=== PATIENT | male | born 1990 | race Two or more races ===

== ENCOUNTER 2021-11-22 20:46 | Inpatient (IN) | payer MEDICAID, OTHER ==
[~2021-11-22] VITALS: Ht 182.9 cm; Wt 85.5 kg
[2021-11-22] MEDS ORDERED: SODIUM CHLORIDE 0.9% 1,000 ML IV ONE (21:00)
[2021-11-22 22:07] LABS: Basophils # (auto) 0 10 ^3/uL (0-0.2); Basophils % (auto) 0.1 % (0.0-2.0); Eosinophils # (auto) 0 10 ^3/uL (0-0.8); Eosinophils % (auto) 0.2 % (0.0-7.0); Hematocrit 42.8 % (41.0-53.0); Hemoglobin 14.8 g/dL (13.5-17.5); Lymphocytes # (auto) 1.5 10 ^3/uL (0.4-5.4); Lymphocytes % (auto) 10.4 % (10.0-50.0); Mean Corpuscular Hemoglobin 32.1 pg (28.0-32.0); Mean Corpuscular Hgb Conc. 34.6 g/dL (32.0-36.0); Mean Corpuscular Volume 92.8 fL (80.0-100.0); Monocytes # (auto) 1.2 10 ^3/uL (0-1.3); Monocytes % (auto) 8.7 % (0.0-12.0); Neutrophils # (auto) 11.5 10 ^3/uL (1.6-8.6); Neutrophils % (auto) 80.6 % (37.0-80.0); Red Blood Cells 4.61 10^6/uL (4.5-5.90); Red Cell Distribution Width 12.3 % (11.8-14.3); White Blood Cell 14.3 10^3/uL (4.4-10.8)
[2021-11-22 22:25] LABS: Albumin 4.2 g/dL (3.4-5.0); Anion Gap 12 (5-15); Blood Alcohol < 3.0 mg/dL (0-5); Blood Urea Nitrogen 21 mg/dL (7-18); Calcium 9.2 mg/dL (8.5-10.1); Carbon Dioxide 23 mmol/L (21-32); Chloride 103 mmol/L (98-107); Glucose 101 mg/dL (74-106); Potassium 3.5 mmol/L (3.5-5.1); Sodium 138 mmol/L (136-145)
[2021-11-22 22:28] LABS: Salicylate < 1.7 mg/dL (2.8-20.0)
[2021-11-22 22:31] LABS: Acetaminophen < 2.0 ug/mL (10-30)
[2021-11-22 22:40] LABS: Alanine Aminotransferase 46 U/L (16-61); Alkaline Phosphatase 63 U/L (45-117); Aspartate Aminotransferase 95 U/L (15-37); Bilirubin, Total 1.8 mg/dL (0.2-1.0); Creatine Kinase IFCC 1009 U/L (39-308); GFR African American 93 mL/min; GFR Non-African American 77 mL/min; Total Protein 7.3 g/dL (6.4-8.2)
[2021-11-22 22:41] LABS: BUN/Creatinine Ratio 18.1
[2021-11-23] MEDS ORDERED: cefTRIAXone 1GM/50ML D5W 50 ML IV ONE (02:30)
[2021-11-23] MEDS ORDERED: SODIUM CHLORIDE 0.9% 1,000 ML IV ONE (11:00)
[2021-11-23] MEDS ORDERED: ACETAMINOPHEN 325 MG TAB PO PRN (11:00)
[2021-11-23] MEDS ORDERED: ONDANSETRON HCL 4 MG/2 ML VIAL IV PRN (11:00)
[2021-11-23] MEDS: ceFAZolin 1GM/50ML 50 ML IV SCH ×2 (12:33→19:00)
[2021-11-23 12:49] LABS: Bilirubin, Direct 0.4 mg/dL (0-0.2)
[2021-11-23 12:57] LABS: Bilirubin, Total 1.8 mg/dL (0.2-1.0); CRP High Sensitivity 2.89 mg/dL (< 0.3)
[2021-11-23] MEDS: SODIUM CHLOR 0.9% PF (SALINE LOCK) 10ML VIAL/SYR IV SCH ×2 (13:37→21:46)
[2021-11-23 16:29] LABS: Urine WBC None Seen /hpf (0 - 3)
[2021-11-23 16:34] LABS: Urine Bacteria NONE SEEN /hpf (None Seen); Urine Blood Negative /uL (Negative); Urine Mucus MANY (None Seen); Urine Specific Gravity 1.038 (1.001-1.035)
[2021-11-23 16:48] LABS: Amphetamine Screen, Urine NEGATIVE (NEGATIVE); Barbiturate Scree,Urine NEGATIVE (NEGATIVE); Benzodiazephine Screen, Urine NEGATIVE (NEGATIVE); Cannabinoid Screen, Urine POSITIVE (NEGATIVE); Cocaine Screen, Urine NEGATIVE (NEGATIVE); Opiate Scree,Urine NEGATIVE (NEGATIVE); Phencyclidine Screen, Urine NEGATIVE (NEGATIVE)
[2021-11-23 20:00] VITALS: BP 133/79
[2021-11-23 22:00] VITALS: BP 133/79
[2021-11-23] MEDS ORDERED: TEMAZEPAM 15 MG CAP PO ONE (23:15)
[2021-11-24] MEDS: ceFAZolin 1GM/50ML 50 ML IV SCH ×3 (03:00→19:05)
[2021-11-24 05:00] VITALS: BP 143/77
[2021-11-24] MEDS: SODIUM CHLOR 0.9% PF (SALINE LOCK) 10ML VIAL/SYR IV SCH ×3 (05:33→23:07)
[2021-11-24] MEDS ORDERED: ALPRAZolam 0.25 MG TAB PO ONE (07:00)
[2021-11-24] MEDS: HYDROcodone-ACET 5/325MG TAB PO PRN ×2 (10:30→16:52)
[2021-11-24] MEDS: SODIUM CHLORIDE 0.9% 1,000 ML IV SCH ×2 (10:30→19:05)
[2021-11-24 13:30] VITALS: BP 140/87
[2021-11-24] MEDS ORDERED: LORazepam 0.5 MG TAB PO PRN (17:00)
[2021-11-24] MEDS: HYDROmorphone HCL 2 MG/ML VL/or syr IV PRN (18:50)
[2021-11-24 22:00] VITALS: BP 130/79
[2021-11-25] MEDS: ceFAZolin 1GM/50ML 50 ML IV SCH ×3 (04:55→22:06)
[2021-11-25] MEDS: HYDROcodone-ACET 5/325MG TAB PO PRN (05:49)
[2021-11-25] MEDS: SODIUM CHLOR 0.9% PF (SALINE LOCK) 10ML VIAL/SYR IV SCH ×4 (06:37→21:07)
[2021-11-25] MEDS: SODIUM CHLORIDE 0.9% 1,000 ML IV SCH ×2 (06:38→22:45)
[2021-11-25 09:00] VITALS: BP 144/88
[2021-11-25] MEDS: SILVER SULFADIAZINE 1 % TOPICAL CREAM 50GM TOP SCH (11:22)
[2021-11-25 13:00] VITALS: BP 140/91
[2021-11-25 15:16] LABS: Basophils # (auto) 0 10 ^3/uL (0-0.2); Basophils % (auto) 0.4 % (0.0-2.0); Eosinophils # (auto) 0.2 10 ^3/uL (0-0.8); Eosinophils % (auto) 2.3 % (0.0-7.0); Hematocrit 38.8 % (41.0-53.0); Hemoglobin 13.5 g/dL (13.5-17.5); Lymphocytes # (auto) 1.1 10 ^3/uL (0.4-5.4); Lymphocytes % (auto) 15.8 % (10.0-50.0); Mean Corpuscular Hemoglobin 32.2 pg (28.0-32.0); Mean Corpuscular Hgb Conc. 34.9 g/dL (32.0-36.0); Monocytes # (auto) 0.6 10 ^3/uL (0-1.3); Monocytes % (auto) 8.5 % (0.0-12.0); Neutrophils # (auto) 5.3 10 ^3/uL (1.6-8.6); Red Blood Cells 4.21 10^6/uL (4.5-5.90); Red Cell Distribution Width 11.8 % (11.8-14.3); White Blood Cell 7.2 10^3/uL (4.4-10.8)
[2021-11-25 15:29] LABS: BUN/Creatinine Ratio 13.6; Calcium 8.9 mg/dL (8.5-10.1); Potassium 3.8 mmol/L (3.5-5.1)
[2021-11-25] MEDS ORDERED: THIAMINE HCL 100 MG TAB PO ONE ×2 (19:00→19:30)
[2021-11-25] MEDS ORDERED: FOLIC ACID 1 MG TAB PO ONE ×2 (19:00→19:30)
[2021-11-25] MEDS ORDERED: SODIUM CHLORIDE 0.9% 1,000 ML IV ONE (19:00)
[2021-11-25] MEDS ORDERED: MULTIPLE VITAMIN TAB PO ONE ×2 (19:00→19:30)
[2021-11-25] MEDS: chlordiazePOXIDE HCL 25 MG CAP PO SCH (19:30)
[2021-11-25 21:11] LABS: Basophils # (auto) 0 10 ^3/uL (0-0.2); Basophils % (auto) 0.3 % (0.0-2.0); Eosinophils # (auto) 0.1 10 ^3/uL (0-0.8); Eosinophils % (auto) 1.7 % (0.0-7.0); Hematocrit 35.8 % (41.0-53.0); Hemoglobin 12.6 g/dL (13.5-17.5); Lymphocytes # (auto) 1.1 10 ^3/uL (0.4-5.4); Lymphocytes % (auto) 16.7 % (10.0-50.0); Mean Corpuscular Hemoglobin 32.4 pg (28.0-32.0); Mean Corpuscular Hgb Conc. 35.1 g/dL (32.0-36.0); Mean Corpuscular Volume 92.2 fL (80.0-100.0); Monocytes # (auto) 0.5 10 ^3/uL (0-1.3); Monocytes % (auto) 7.9 % (0.0-12.0); Neutrophils # (auto) 4.9 10 ^3/uL (1.6-8.6); Neutrophils % (auto) 73.4 % (37.0-80.0); Red Blood Cells 3.88 10^6/uL (4.5-5.90); Red Cell Distribution Width 12.1 % (11.8-14.3); White Blood Cell 6.7 10^3/uL (4.4-10.8)
[2021-11-25 21:33] LABS: Albumin 3.1 g/dL (3.4-5.0); Calcium 8.6 mg/dL (8.5-10.1); Magnesium 2.1 mg/dL (1.6-2.6); Potassium 3.3 mmol/L (3.5-5.1)
[2021-11-25 21:36] LABS: BUN/Creatinine Ratio 9.5; Bilirubin, Total 0.5 mg/dL (0.2-1.0)
[2021-11-25 22:14] VITALS: BP 130/87
[2021-11-26] MEDS: chlordiazePOXIDE HCL 25 MG CAP PO SCH ×3 (03:30→22:18)
[2021-11-26 04:54] VITALS: BP 157/95
[2021-11-26] MEDS: ceFAZolin 1GM/50ML 50 ML IV SCH ×3 (05:59→22:18)
[2021-11-26 09:00] VITALS: BP 133/78
[2021-11-26] MEDS ORDERED: MIDAZOLAM HCL 2MG/2ML 2ml VIAL (1mg/ml) IV PRN ×3 (09:00→16:45)
[2021-11-26] MEDS: SILVER SULFADIAZINE 1 % TOPICAL CREAM 50GM TOP SCH (10:00)
[2021-11-26] MEDS ORDERED: POTASSIUM CHLORIDE 40 MEQ, LIDOCAINE 1% (LOCAL ANESTH.) 4 ML in SODIUM CHL 0.9% 250 ML IV ONE (10:15)
[2021-11-26] MEDS: SODIUM CHLORIDE 0.9% 1,000 ML IV SCH ×2 (10:45→17:43)
[2021-11-26] MEDS: SODIUM CHLOR 0.9% PF (SALINE LOCK) 10ML VIAL/SYR IV SCH ×2 (10:47→17:43)
[2021-11-26 22:00] VITALS: BP 146/89
[2021-11-27] MEDS: SODIUM CHLORIDE 0.9% 1,000 ML IV SCH ×3 (03:50→23:15)
[2021-11-27 05:00] VITALS: BP 120/80
[2021-11-27] MEDS: ceFAZolin 1GM/50ML 50 ML IV SCH ×3 (06:06→22:33)
[2021-11-27] MEDS: SODIUM CHLOR 0.9% PF (SALINE LOCK) 10ML VIAL/SYR IV SCH ×3 (06:06→22:43)
[2021-11-27 09:00] VITALS: BP 143/80
[2021-11-27] MEDS: chlordiazePOXIDE HCL 25 MG CAP PO SCH ×2 (09:36→22:00)
[2021-11-27] MEDS: SILVER SULFADIAZINE 1 % TOPICAL CREAM 50GM TOP SCH (09:37)
[2021-11-27 14:36] LABS: Basophils # (auto) 0 10 ^3/uL (0-0.2); Basophils % (auto) 0.3 % (0.0-2.0); Eosinophils # (auto) 0.1 10 ^3/uL (0-0.8); Eosinophils % (auto) 1.6 % (0.0-7.0); Hematocrit 38.7 % (41.0-53.0); Hemoglobin 13.2 g/dL (13.5-17.5); Lymphocytes # (auto) 1.2 10 ^3/uL (0.4-5.4); Mean Corpuscular Hemoglobin 31.7 pg (28.0-32.0); Mean Corpuscular Hgb Conc. 34.2 g/dL (32.0-36.0); Mean Corpuscular Volume 92.9 fL (80.0-100.0); Monocytes # (auto) 0.6 10 ^3/uL (0-1.3); Monocytes % (auto) 9.8 % (0.0-12.0); Neutrophils # (auto) 3.8 10 ^3/uL (1.6-8.6); Neutrophils % (auto) 66.3 % (37.0-80.0); Nucleated Red Blood Cells % 0.1 %; Red Blood Cells 4.17 10^6/uL (4.5-5.90); Red Cell Distribution Width 12.2 % (11.8-14.3); White Blood Cell 5.7 10^3/uL (4.4-10.8)
[2021-11-27 15:42] LABS: Calcium 8.9 mg/dL (8.5-10.1); Potassium 3.9 mmol/L (3.5-5.1)
[2021-11-27 15:44] LABS: BUN/Creatinine Ratio 12.1
[2021-11-27 17:00] VITALS: BP 146/90
[2021-11-27 22:00] VITALS: BP 132/82
[2021-11-28] MEDS: SODIUM CHLOR 0.9% PF (SALINE LOCK) 10ML VIAL/SYR IV SCH ×3 (06:01→22:03)
[2021-11-28] MEDS: ceFAZolin 1GM/50ML 50 ML IV SCH ×3 (06:01→22:03)
[2021-11-28] MEDS ORDERED: chlordiazePOXIDE HCL 25 MG CAP PO SCH (07:00)
[2021-11-28] MEDS: SILVER SULFADIAZINE 1 % TOPICAL CREAM 50GM TOP SCH (11:36)
[2021-11-28 16:36] VITALS: BP 150/85
[2021-11-28 22:00] VITALS: BP 142/83
[2021-11-29 05:00] VITALS: BP 140/76
[2021-11-29] MEDS: ceFAZolin 1GM/50ML 50 ML IV SCH ×3 (05:55→21:44)
[2021-11-29] MEDS: SODIUM CHLOR 0.9% PF (SALINE LOCK) 10ML VIAL/SYR IV SCH ×3 (05:55→21:43)
[2021-11-29 06:34] LABS: Basophils # (auto) 0 10 ^3/uL (0-0.2); Basophils % (auto) 0.4 % (0.0-2.0); Eosinophils # (auto) 0.1 10 ^3/uL (0-0.8); Eosinophils % (auto) 1.9 % (0.0-7.0); Hematocrit 39.7 % (41.0-53.0); Hemoglobin 13.9 g/dL (13.5-17.5); Lymphocytes # (auto) 1.5 10 ^3/uL (0.4-5.4); Lymphocytes % (auto) 26.6 % (10.0-50.0); Mean Corpuscular Hemoglobin 32.3 pg (28.0-32.0); Mean Corpuscular Volume 92.3 fL (80.0-100.0); Monocytes # (auto) 0.5 10 ^3/uL (0-1.3); Monocytes % (auto) 8.5 % (0.0-12.0); Neutrophils # (auto) 3.5 10 ^3/uL (1.6-8.6); Neutrophils % (auto) 62.6 % (37.0-80.0); Nucleated Red Blood Cells % 0.1 %; Red Cell Distribution Width 12.4 % (11.8-14.3); White Blood Cell 5.6 10^3/uL (4.4-10.8)
[2021-11-29 06:49] LABS: BUN/Creatinine Ratio 13.4; Potassium 4.2 mmol/L (3.5-5.1)
[2021-11-29 07:30] VITALS: BP 142/80
[2021-11-29 09:00] VITALS: BP 142/80
[2021-11-29] MEDS: FOLIC ACID 1 MG TAB PO SCH (09:00)
[2021-11-29] MEDS: THIAMINE HCL 100 MG TAB PO SCH (09:01)
[2021-11-29] MEDS: SILVER SULFADIAZINE 1 % TOPICAL CREAM 50GM TOP SCH (09:01)
[2021-11-29] MEDS: CYANOCOBALAMIN 500 MCG TAB PO SCH (09:01)
[2021-11-29 12:24] VITALS: BP 146/86
[2021-11-29 17:00] VITALS: BP 141/81
[2021-11-29] MEDS: risperiDONE 1 MG TAB PO SCH (21:44)
[2021-11-29 22:00] VITALS: BP 145/87
[2021-11-30] MEDS: HYDROmorphone HCL 2 MG/ML VL/or syr IV PRN (04:26)
[2021-11-30 05:00] VITALS: BP 132/89
[2021-11-30] MEDS: SODIUM CHLOR 0.9% PF (SALINE LOCK) 10ML VIAL/SYR IV SCH ×3 (05:58→22:35)
[2021-11-30] MEDS: ceFAZolin 1GM/50ML 50 ML IV SCH ×3 (05:59→22:36)
[2021-11-30 09:00] VITALS: BP 119/73
[2021-11-30] MEDS: THIAMINE HCL 100 MG TAB PO SCH (11:20)
[2021-11-30] MEDS: FOLIC ACID 1 MG TAB PO SCH (11:20)
[2021-11-30] MEDS: CYANOCOBALAMIN 500 MCG TAB PO SCH (11:21)
[2021-11-30] MEDS: SILVER SULFADIAZINE 1 % TOPICAL CREAM 50GM TOP SCH (11:21)
[2021-11-30] MEDS: LORazepam 0.5 MG TAB PO PRN (11:23)
[2021-11-30 12:17] LABS: Calcium 9.2 mg/dL (8.5-10.1); Potassium 4.1 mmol/L (3.5-5.1)
[2021-11-30 12:48] LABS: Hemoglobin 14.3 g/dL (13.5-17.5); Mean Corpuscular Hemoglobin 32.6 pg (28.0-32.0); Mean Corpuscular Volume 93.2 fL (80.0-100.0); Red Cell Distribution Width 12.4 % (11.8-14.3)
[2021-11-30 12:55] LABS: Basophils % (manual) 0 (0.0-2.0); Blast Cells 0; Eosinophils % (manual) 0 (0-7); Metamyelocytes % 0; Promyelocytes % 0
[2021-11-30 13:00] VITALS: BP 122/79
[2021-11-30 14:23] LABS: Band Neutrophils % (manual) 1; Lymphocytes % (manual) 14 (10.0-50.0); Monocytes % (manual) 7 (0-12); Myelocytes % 1; Reactive Lymphocytes 3
[2021-11-30 17:01] VITALS: BP 130/77
[2021-11-30 22:00] VITALS: BP 129/80
[2021-11-30] MEDS: risperiDONE 1 MG TAB PO SCH (22:35)
[2021-12-01 05:00] VITALS: BP 127/78
[2021-12-01] MEDS: SODIUM CHLOR 0.9% PF (SALINE LOCK) 10ML VIAL/SYR IV SCH (05:47)
[2021-12-01] MEDS: ceFAZolin 1GM/50ML 50 ML IV SCH (05:48)
[2021-12-01 09:00] VITALS: BP 131/85
[2021-12-01] MEDS: FOLIC ACID 1 MG TAB PO SCH (09:29)
[2021-12-01] MEDS: THIAMINE HCL 100 MG TAB PO SCH (09:29)
[2021-12-01] MEDS: CYANOCOBALAMIN 500 MCG TAB PO SCH (09:30)
[2021-12-01] MEDS ORDERED: RIS1T PO (09:46)
[2021-12-01] MEDS ORDERED: LORA0.5T20 PO (09:46)
[2021-12-01] MEDS ORDERED: LEVO750T8 PO (09:52)
[2021-12-01 10:32] LABS: Basophils # (auto) 0 10 ^3/uL (0-0.2); Basophils % (auto) 0.3 % (0.0-2.0); Eosinophils # (auto) 0 10 ^3/uL (0-0.8); Eosinophils % (auto) 0.7 % (0.0-7.0); Hematocrit 40.1 % (41.0-53.0); Hemoglobin 13.9 g/dL (13.5-17.5); Lymphocytes # (auto) 0.9 10 ^3/uL (0.4-5.4); Lymphocytes % (auto) 14.1 % (10.0-50.0); Mean Corpuscular Hemoglobin 32.3 pg (28.0-32.0); Mean Corpuscular Hgb Conc. 34.7 g/dL (32.0-36.0); Mean Corpuscular Volume 93.3 fL (80.0-100.0); Monocytes # (auto) 0.4 10 ^3/uL (0-1.3); Monocytes % (auto) 6.9 % (0.0-12.0); Red Cell Distribution Width 12.4 % (11.8-14.3); White Blood Cell 6.5 10^3/uL (4.4-10.8)
[2021-12-01 10:49] LABS: Calcium 9.2 mg/dL (8.5-10.1); Potassium 3.8 mmol/L (3.5-5.1)
[2021-12-01 13:00] VITALS: BP 121/79
[2021-12-01] MEDS: LORazepam 0.5 MG TAB PO PRN (14:08)
== END 2021-12-01 14:45 | disposition home or self-care (01) | DRG 602 ==
LOC: ER 20:46 → EDBD 20:46 → TELE 11-23 11:41 → TELE-EAST 11-23 18:32
PROVIDERS: ADMIT Internal Medicine; ATTEND Internal Medicine Pulmonary Disease
DX: L03.116 Cellulitis of left lower limb (principal); G93.41 Metabolic encephalopathy; R78.81 Bacteremia; M62.82 Rhabdomyolysis; F10.139 Alcohol abuse with withdrawal, unspecified; L03.115 Cellulitis of right lower limb; E86.0 Dehydration; B95.61 Methicillin susceptible Staphylococcus aureus infection as the cause of diseases classified elsewhere; Y90.9 Presence of alcohol in blood, level not specified; Z20.822 Contact with and (suspected) exposure to COVID-19; F15.10 Other stimulant abuse, uncomplicated; Z79.899 Other long term (current) drug therapy
CPT/HCPCS: 36415; 70450; 70551; 71045; 73620; 80048; 80053; 80307; 80320; 80329; 81001; 82140; 82247; 82248; 82550; 82607; 83605; 83735; 84443; 84484; 85007; 85025; 85027; 85652; 86141; 87040; 87077; 87086; 87186; 96360; 96361; G0378; J0690; J2001; J2250